=== PATIENT | female | born 1930 | race Caucasian/White ===

== ENCOUNTER 2019-12-31 22:57 | Observation (INO) | payer MEDICARE, BC ==
[~2019-12-31] VITALS: Ht 157.5 cm; Wt 175.6 kg
--- NOTE | 2019-12-31 23:26 | NUR ---
assessment made. ERP at bedside. c/o left shoulder pain ( aching ) as described constant. denies CP/ SOB.
[2019-12-31] MEDS ORDERED: ASPIRIN 81 MG TABLET CHEW PO ONE (23:30)
[2019-12-31] MEDS ORDERED: hydrALAzine 20 MG/ML, 1ML IV ONE (23:30)
--- NOTE | 2019-12-31 23:45 | NUR ---
IV placed.blood drawn and sent to lab. medicated.
[2019-12-31] MEDS ORDERED: hydrALAzine 20 MG/ML, 1ML ONE (23:50)
[2019-12-31] MEDS ORDERED: ASPIRIN 81 MG TABLET EC ONE (23:50)
[2019-12-31 23:55] LABS: BASOPHILS # (AUTO) 0.03 x10^3/uL (0-0.1); BASOPHILS % (AUTO) 0 % (0-1); EOSINOPHILS # (AUTO) 0.12 x10^3/uL (0-0.4); EOSINOPHILS % (AUTO) 2 % (1-7); LYMPHOCYTES # (AUTO) 1.67 x10^3/uL (1-3.4); LYMPHOCYTES % (AUTO) 23 % (22-44); MD NO; MEAN CORPUSCULAR HEMOGLOBIN 31.1 pg (27.0-34.8); MEAN CORPUSCULAR HGB CONC 33.7 g/dL (32.4-35.8); MEAN CORPUSCULAR VOLUME 92.1 fL (80-100); MONOCYTES # (AUTO) 0.56 x10^3/uL (0.2-0.8); MONOCYTES % (AUTO) 8 % (2-9); NEUTROPHILS # (AUTO) 4.82 x10^3/uL (1.8-6.8); NEUTROPHILS % (AUTO) 67 % (42-75); PLATELET COUNT 247 x10^3/uL (130-400); RED BLOOD COUNT 4.24 x10^6/uL (3.82-5.3); RED CELL DISTRIBUTION WIDTH 13.4 % (9.6-15.2)
[2020-01-01 00:03] LABS: ALANINE AMINOTRANSFERASE 23 U/L (12-78); ALBUMIN 3.4 g/dL (3.4-5.0); ANION GAP 6 mmol/L (5-15); CALCIUM 8.4 mg/dL (8.5-10.1); CHLORIDE 108 mmol/L (98-107); CREATININE 0.97 mg/dL (0.55-1.02)
[2020-01-01 00:07] LABS: ALKALINE PHOSPHATASE 65 U/L (45-117); BILIRUBIN,TOTAL 0.3 mg/dL (0.2-1.0); TOTAL PROTEIN 7.3 g/dL (6.4-8.2); TROPONIN I < 0.015 ng/mL (0.000-0.045)
[2020-01-01] MEDS ORDERED: METO25TA35 PO (00:24)
--- NOTE | 2020-01-01 00:28 | NUR ---
ERP at bedside for re-evaluation. patient for admit.
--- NOTE | 2020-01-01 00:28 | NUR ---
Randy - [phone] call for ridchapin sanchez dc'gilberto.
[2020-01-01] MEDS ORDERED: METOPROLOL 1 MG/ML, 5ML IVPush PRN (00:30)
[2020-01-01] MEDS ORDERED: METOPROLOL 1 MG/ML, 5ML ONE (00:43)
--- NOTE | 2020-01-01 00:51 | NUR ---
patient states pain on her left shoulder is gone. left breast still sore. re-medicated for BP
--- NOTE | 2020-01-01 01:02 | NUR ---
Dr. Martino at bedside.
--- NOTE | 2020-01-01 01:25 | NUR ---
Bed assigned. report to BARRY Hackett.
[2020-01-01] MEDS ORDERED: HEPARIN 5,000 UNITS/ML, 1ML SQ SCH (01:30)
[2020-01-01] MEDS ORDERED: ONDANSETRON 2MG/ML, 2ML IVPush PRN (01:30)
[2020-01-01] MEDS ORDERED: BISACODYL 10 MG SUPP PR PRN (01:30)
[2020-01-01] MEDS ORDERED: hydrALAzine 20 MG/ML, 1ML IVPush PRN (01:30)
[2020-01-01] MEDS ORDERED: NITROGLYCERIN 0.4 MG BOTTLE (25 TABS) SL PRN (01:30)
[2020-01-01] MEDS ORDERED: POLYETHYLENE GLYCOL 17 GM PACKET PO PRN (01:30)
[2020-01-01] MEDS ORDERED: ONDANSETRON ODT 4 MG PO PRN (01:30)
[2020-01-01] MEDS ORDERED: OXYcodone IR 5MG TABLET PO PRN (01:30)
[2020-01-01] MEDS ORDERED: PROMETHAZINE 25 MG/ML, 1ML IM PRN (01:30)
[2020-01-01] MEDS ORDERED: morphine SULFATE 10 MG/ML, 1ML IVPush PRN (01:30)
[2020-01-01] MEDS ORDERED: ACETAMINOPHEN 325 MG TABLET PO PRN (01:30)
[2020-01-01] MEDS ORDERED: DOCUSATE 100 MG CAPSULE PO PRN (01:30)
[2020-01-01 01:53] VITALS: BP 159/74
[2020-01-01 02:20] VITALS: BP 143/68
[2020-01-01 03:25] LABS: FREE T4 (FREE THYROXINE) 1.02 ng/dL (0.76-1.46); TROPONIN I < 0.015 ng/mL (0.000-0.045)
[2020-01-01] MEDS ORDERED: ASPIRIN 325 MG TABLET EC PO SCH (06:00)
[2020-01-01 07:12] VITALS: BP 159/76
[2020-01-01] MEDS ORDERED: SYNTHROID (07:46)
[2020-01-01 07:56] LABS: TROPONIN I < 0.015 ng/mL (0.000-0.045)
[2020-01-01] MEDS ORDERED: METOPROLOL TARTRATE 25 MG TAB PO SCH (09:00)
== END 2020-01-01 10:52 | disposition home or self-care (01) ==
LOC: ED 01-01 00:42 → EDIP 01-01 00:54 → INTOOBSV 01-01 00:54 → 5SO 01-01 01:47
PROVIDERS: ADMIT Internal Medicine; ATTEND Internal Medicine
DX: R07.89 Other chest pain (principal); I10 Essential (primary) hypertension; M25.512 Pain in left shoulder; I20.0 Unstable angina; M48.50XA Collapsed vertebra, not elsewhere classified, site unspecified, initial encounter for fracture; I34.1 Nonrheumatic mitral (valve) prolapse; Z79.899 Other long term (current) drug therapy; Z90.710 Acquired absence of both cervix and uterus
CPT/HCPCS: 36415; 71045; 73030; 80053; 83036; 83735; 84439; 84443; 84484; 85025; 93005; 96372; 96374; 96375; 99285; G0378; J0360; J1644